=== PATIENT | male | born 1975 | race Caucasian/White ===

== ENCOUNTER 2016-07-21 10:30 | Emergency (ER) | payer OTHER ==
[~2016-07-21] VITALS: Ht 180.3 cm; Wt 125.8 kg
[~2016-07-21 10:30] MED LIST: HYDR-3702 PO; HYDR-3754 PO; LORA1TAB GT; MELA5TAB5 PO; METH500T PO; OMEG1CAP61 PO; SAW160CA2 PO; ZINC OXIDE PO
[2016-07-21 10:34] VITALS: BP 139/103
--- OUTSIDE RECORDS SUMMARY | 2016-07-21 10:39 | XMS REPORT | Continuity of Care Document ---
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 Name Role Phone SHAYYAMADEO MD PCP [phone] Insurance Providers Payer Name Policy Number Subscriber Name Relationship [employer] [id number] Gera Mcwilliams 19 Self / Same As Patient Chief Complaint and Reason for Visit Chief Complaint Pain Reason for Visit Back pain Problems Medical Problems Problem Onset Date Status Backache 03/01/2013 Resolved Insomnia ~10/23/2013 Active Back pain ~08/04/2014 Active Medications Medication Dose Route Sig Days/Qty Instructions Order Date Discontinued Date Status Methocarbamol 1 - 2 Tab ORAL Q 6H PRN 20 Qty Spasms 03/01/13 10/24/13 Discontinued Hydrocodone Bit/Acetaminophen 1 Tab ORAL Q 4H PRN 10 Qty Pain 03/01/13 10/24/13 Discontinued Melatonin 15 Mg ORAL DAILY 10/24/13 Active [place]-3 Fatty Acids/Fish Oil 1 Each ORAL DAILY 10/24/13 Active [Zinc Oxide] ORAL DAILY 10/24/13 Active [place] 160 Mg ORAL DAILY 10/24/13 Active Lorazepam 1 Mg GT BEDTIME 2 Qty 10/24/13 Active Hydrocodone Bit/Acetaminophen 1 Each ORAL EVERY 6 HOURS 5 Qty 08/04/14 Active Social History No social history. Hospital Discharge Instructions No hospital discharge instructions. Plan of Care Discharge Date 08/04/14 7:57pm Disposition 01 HOME OR SELF-CARE Condition at Discharge Stable Instructions/Education Provided Acute Low Back Pain (ED) Forms Provided Patient Seen In ED Prescriptions See Medications Section Referrals AMADEO MUHAMMAD MD Additional Instructions/Education Take home meds. Follow up with Dr. Muhammad. Return to ER as needed. Some of your test results may not be complete prior to your leaving the Emergency Department. The Emergency Department is not authorized to give test results over the phone. Please contact the doctor's office listed in this packet of information for your final results. Follow up with your primary care physician or return to the Emergency Department for worsening or worrisome symptoms. * Emergency Department phone number: [phone], x [phone]* MEDICAL RECORD If you need copies of your X-rays, call [phone]. If you need copies of your medical record, including lab results, a signed authorization for release of records will be required. A telephone call for release of Health Information is not allowed. BILLING Billing can sometimes be confusing and frustrating. To help avoid confusion in the future, please take a moment to acquaint yourself with the billing parties for services. SERVICE BILLING [facility] Emergency Room Services [facility] Physician Services [facility] X[facility] Patients will receive bills for services from the appropriate provider. If you have any questions about your [facility] bill, our staff will be happy to assist you. Please call [phone], and ask for the billing department. THANK YOU for choosing [facility] as your emergency care provider! Functional Status No functional status results. Allergies, Adverse Reactions, Alerts Allergen Type Severity Reaction Status Last Updated Niacin Allergy Intermediate Hives Active 10/24/13 Immunizations No immunization records. Vital Signs Acute Vital Signs Vital Response Date/Time Temperature (Fahrenheit) 99.8 Pulse 94 bpm Respirations 20 Height 5 ft 11 in Weight 264 lb Body Mass Index 36.0 kg/m^2 Results Test Source Date Result Interp. Ref. Range Comments Urine Mucus August 04, 2014 6:21pm 2+ H Urine collection method Clean Catch Urine Squamous Epithelial Cells August 04, 2014 6:21pm 2-5 /LPF Urine collection method Clean Catch Urine Bacteria August 04, 2014 6:21pm None seen /HPF Urine collection method Clean Catch Urine WBC August 04, 2014 6:21pm 0-2 /HPF Urine collection method Clean Catch Urine RBC August 04, 2014 6:21pm 2-5 /HPF Urine collection method Clean Catch Urine Collection Type August 04, 2014 6:21pm Clean catch Urine collection method Clean Catch Volume Urine Centrifuged August 04, 2014 6:21pm 12 ml Urine collection method Clean Catch Albumin/Globulin Ratio August 04, 2014 6:27pm 1.518 N 1.1-1.8 Albumin August 04, 2014 6:27pm 4.1 g/dL N 3.4-5.0 Total Protein August 04, 2014 6:27pm 6.8 g/dL N 6.4-8.5 Alanine Aminotransferase (ALT/SGPT) August 04, 2014 6:27pm 45 U/L N 30- 65 Aspartate Amino Transf (AST/SGOT) August 04, 2014 6:27pm 32 U/L N 15-37 Alkaline Phosphatase August 04, 2014 6:27pm 41 U/L N 38-126 Total Bilirubin August 04, 2014 6:27pm 0.6 mg/dL N 0.1-1.0 Calcium/Ionized Calcium Ratio August 04, 2014 6:27pm 4.2 mg/dL N 3.8-4.6 Calcium Level August 04, 2014 6:27pm 9.3 mg/dL N 8.8-10.8 Calculated Osmolality August 04, 2014 6:27pm 270 mosm/L L 280-300 Glucose Level August 04, 2014 6:27pm 90 mg/dL N 70-110 Estimated GFR (Non- August 04, 2014 6:27pm 103.7 Estimat Glomerular Filtration Rate August 04, 2014 6:27pm 125.5 BUN/Creatinine Ratio August 04, 2014 6:27pm 22 H 10-20 Creatinine August 04, 2014 6:27pm 0.83 mg/dL N 0.8-1.5 Blood Urea Nitrogen August 04, 2014 6:27pm 18 mg/dL N 7-18 Anion Gap August 04, 2014 6:27pm 12.8 MEQ/L N 3-15 Carbon Dioxide Level August 04, 2014 6:27pm 24 mmol/L N 22-29 Chloride Level August 04, 2014 6:27pm 107 mmol/L N 98-108 Potassium Level August 04, 2014 6:27pm 4.4 mmol/L N 3.5-5.1 Sodium Level August 04, 2014 6:27pm 139 mmol/L N 135-150 Urine Leukocyte Esterase August 04, 2014 6:21pm Negative Negative Urine collection method Clean Catch Urine Urobilinogen August 04, 2014 6:21pm 0.2 mg/dL 0.2-1.0 Urine collection method Clean Catch Urine Bilirubin August 04, 2014 6:21pm Negative Negative Urine collection method Clean Catch Urine Nitrite August 04, 2014 6:21pm Negative Negative Urine collection method Clean Catch Urine Ketones August 04, 2014 6:21pm Negative Negative Urine collection method Clean Catch Urine RBC (Auto) August 04, 2014 6:21pm Negative Negative Urine collection method Clean Catch Urine Glucose (UA) August 04, 2014 6:21pm Negative Negative Urine collection method Clean Catch Urine Protein August 04, 2014 6:21pm 1+ H Negative Urine collection method Clean Catch Urine Specific [place] August 04, 2014 6:21pm >=1.030 1.005-1.030 Urine collection method Clean Catch Urine pH August 04, 2014 6:21pm 6.0 5.0 - 8.0 Urine collection method Clean Catch Urine Clarity August 04, 2014 6:21pm Clear Urine collection method Clean Catch Urine Color August 04, 2014 6:21pm Yellow Urine collection method Clean Catch Basophils # (Auto) August 04, 2014 6:27pm 0.0 10^3uL Basophils (%) (Auto) August 04, 2014 6:27pm 1 % N 0-2 Eosinophils # (Auto) August 04, 2014 6:27pm 0.1 10^3uL Eosinophils (%) (Auto) August 04, 2014 6:27pm 2 % N 0-4 Hematocrit August 04, 2014 6:27pm 43.60 % N 39.00-50.00 Hemoglobin August 04, 2014 6:27pm 15.4 g/dL N 13.5-17.0 Lymphocytes # (Auto) August 04, 2014 6:27pm 1.5 X10^3 Lymphocytes (%) (Auto) August 04, 2014 6:27pm 19 % L 20-46 Mean Corpuscular Hemoglobin August 04, 2014 6:27pm 28.7 PG N 26.0-34.0 Mean Corpuscular Hemoglobin Concent August 04, 2014 6:27pm 35.3 g/dL N 31.0-37.0 Mean Corpuscular Volume August 04, 2014 6:27pm 81 FL N 80-100 Mean Platelet Volume August 04, 2014 6:27pm 10.1 FL H 6.0-9.5 Monocytes # (Auto) August 04, 2014 6:27pm 0.7 X10^3 Monocytes (%) (Auto) August 04, 2014 6:27pm 9 % N 3-11 Neutrophils # (Auto) August 04, 2014 6:27pm 5.4 X10^3 Neutrophils (%) (Auto) August 04, 2014 6:27pm 69 % H 51-67 Platelet Count August 04, 2014 6:27pm 214 10^3uL N 150-450 Red Blood Count August 04, 2014 6:27pm 5.36 10^6uL N 4.50-5.50 Red Cell Distribution Width August 04, 2014 6:27pm 15.0 % N 11.8-15.6 White Blood Count August 04, 2014 6:27pm 7.74 10^3uL N 4.0-11.0 Procedures No known history of procedures. Encounters Encounter Location Date/Time Departed Emergency Room [facility] 08/04/14 5:45pm Recent Diagnosis
[2016-07-21] MEDS ORDERED: HYDROmorphone 1 MG/ML (DILAUDID) SYRINGE IM ONE (11:10)
[2016-07-21] MEDS ORDERED: PROMETHAZINE 25 MG/ML (PHENERGAN) 1 ML VIAL IM ONE (11:10)
[2016-07-21] MEDS ORDERED: HYDR-3702 PO (11:12)
[2016-07-21] MEDS ORDERED: CYCL10TA45 PO (11:12)
[2016-07-21] MEDS: KETOROLAC 60 MG/2 ML (TORADOL) VIAL IM ONE ×2 (11:23→11:26)
== END 2016-07-21 11:33 | disposition home or self-care (01) ==
LOC: EDUNIT# 10:30 → ED 10:34
DX: S39.012A Strain of muscle, fascia and tendon of lower back, initial encounter (principal); X58.XXXA Exposure to other specified factors, initial encounter
CPT/HCPCS: 96372; 99282; J1170; J1885; J2550; 99283

== ENCOUNTER → 2016-07-26 | Outpatient (CLI) | payer OTHER ==
[~2016-07-26] MED LIST changes: +CYCL10TA45 PO
--- NOTE | 2016-07-26 17:06 | Diagnostic Imaging Report ---
INDICATION: Acute low back pain. FINDINGS: Good alignment of the vertebral bodies. Body heights and disc spaces are well maintained. Facets show no evidence of pars defect. Mild degenerative facet disease noted at L5-S1. Mild hypertrophic lipping at the endplates noted in the lower 4 disc spaces. Pedicles are intact. SI joints show hypertrophic sclerotic changes along the superior aspect of the right SI joint. Left SI joint appears normal. IMPRESSION: 1. Mild degenerative disc and facet disease. 2. Sclerotic changes noted along the superior aspect of the right SI joint. Overall appearance has changed very little when compared with the 08/04/2014 exam. Dictated by: Dictated on workstation # [id number]
== END ==
LOC: RAD 12:11
PROVIDERS: ATTEND Physician Assistant Surgical
DX: M54.5 Low back pain (principal)
CPT/HCPCS: 72110

== ENCOUNTER 2016-08-13 16:00 | Outpatient (RCR) | payer OTHER ==
--- NOTE | 2016-08-08 12:35 | PT/OT/ST INITIAL EVALUATION ---
Department of Health and Human Services Form Approved [facility] Care Financing Administration OMB No. [id number] PLAN OF CARE/ASSESSMENT FOR OUTPATIENT REHABILITATION (Complete for Initial Claims Only) 1. PATIENT'S NAME Gera Oliver 2. ACC # [id number] 3. HICN NA 4. PROVIDER NO. [id number] 5. TYPE: PT 6. PRIOR HOSPITALIZATION NA 7. PRIMARY DX M54.5 acute low back pain 8. SECONDARY DX Pelvic asymmetry and weakness 9. ONSET DATE 07/25/2016 10. REFERRAL DATE 07/26/2016 11. SOC. DATE 08/06/2016 12. TIME OF EVAL 3:55 p.m. to 4:50 p.m. 12. REFERRING PHYSICIAN JP Dobbins 13. CHARGES/UNITS PT evaluation low complexity 79108 Therapeutic exercise 00089, 2 units 14. G CODES NA 15. PRIOR LEVEL OF FUNCTION; PERTINENT HISTORY (Prior therapy results, reason for referral.) S: Prior to therapy the patient consented to today's evaluation and treatment. The patient is a 41-year-old male referred to physical therapy by JP Dobbins to address functional limitations secondary to acute low back pain, which began on 07/25/2016. Current complaint/Mechanism of injury: The patient stated that he started to have low back pain on 07/25/2016, which just felt tight. On 07/28/2016, the patient went to the ER and got 2 shots. He thinks he received an NSAID and pain medication. 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 The patient does have a history of frequent back pain. The patient states that his pain is mostly a muscles freezing up pain. No pain or numbness or tingling into his lower extremities. 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 Otherwise the patient is not extremely active exercising. The patient had a lot of difficulty sitting in the forklift at the beginning of his shift today. 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 Therapy History: None recently. Pain level: The patient rates the current pain level as 8/10 and describes it as inflammation and burning pain. The left and right low back are equal in pain. Obstacles to delivery of care: None noted. Aggravating factors: Include not having a back support and standing and sitting. Relieving factors: Include sitting in a lawn chair with a heating pad. Diagnostic testing: None. Past medical history: None. Past surgical history: Had a lower hernia surgery in 2008. Current medications: Include antacids, herbal supplements, Tylenol, Flexeril 10 mg, and 5 mg once a day of an NSAID. Leisure activities: Include cooking and cleaning. Activity level: Listed as very active. Personal health rating: Listed as good. Patient's Goal: The patient's goal for physical therapy is to be able to mow his yard with a push mower. Additional goals are to eliminate pain so he can function normally. 16. INITIAL ASSESSMENT/SAFETY PRECAUTIONS/MEDICAL COMPLICATIONS (Level of function at start of care. Be specific, use objective measures, list problems.) O: APPEARANCE, OBSERVATION AND GAIT: The patient presents to physical therapy with the diagnosis of acute low back pain which began on 07/25/2016. The patient states he is unable to lay flat on his back, so full assessment of pelvic asymmetry was not possible. The patient sleeps in a side-lying position where his knees are up towards his chest. The patient gingerly moves from a sitting to a standing position. The patient demonstrates his hamstring stretch that he typically does and is a standing position reaching down to the floor. He does demonstrate a rounded back when doing this. The patient was educated in proper hamstring stretching. PALPATION: The patient was not significantly tender to palpate with his low back and SI region. SPECIAL TESTS: None RANGE OF MOTION/FLEXIBILITY: Lumbar active range of motion flexion 100%, extension 50%, side-bending bilateral 95%, rotation bilateral 95%. STRENGTH: Manual muscle testing of the hips bilateral flexion 4/5, abduction bilateral 4/5, extension bilateral 4/5. Knee flexion bilateral 4/5, knee extension bilateral 5/5. TODAY'S TREATMENT: Included initial PT evaluation followed by therapeutic exercise and prescription of home exercise handout. 17. INITIAL POC: (Specify procedures, modalities, short and ad terminal makeup operator goals) A: The patient presents to physical therapy with the diagnosis of acute low back pain with functional limitations of pelvic asymmetry and weakness. In a standing position the patient's right iliac crest was higher than the left. Further assessment was not possible due to the patient not being able to lay flat. Also in a standing position, upon palpation, the right sacrum appeared to be elevated as compared to the left. The patient would benefit from physical therapy in order to improve core strengthening in order to get pelvis more stability in order to maintain alignment and to enable proper lifting strategies with home activities and to be able to return to work without problems. Once the patient's pain calms down, and he is able to move into and out of a supine position and into and out of a prone position, further assessment of his pelvic alignment will be possible. At this point, the patient leaned his right PSIS region up against a doorjamb gently and provided gentle pressure, which relaxed tight structures that evened out pelvic alignment issues in a standing position. PROGNOSIS: The patient has a good prognosis for increased active range of motion with decreased pain with regular therapy attendance and compliance with prescribed home exercise program. CONTRAINDICATIONS, PRECAUTIONS AND OBSTACLES TO DELIVERY OF CARE: No contraindications, precautions, or obstacles are known at this time. INFORMED CONSENT: The prognosis and goals were discussed with this patient, as well as the expected outcomes and possible risks. The patient agreed to undergo PT evaluation and further treatment. SHORT TERM GOALS: 1. The patient is to have a decrease in pain of the low back to less than or equal to 1/10 in 4 weeks in order to return to mowing and sit to stand without deviation. 2. The patient is to have an increase in core and hip strengthening to 4+/5 bilaterally in 4 weeks in order to maintain proper pelvic alignment and return to work without deviation. 3. The patient is to have hamstring flexibility in a 90/90 position to 140 degrees bilaterally in order to decrease the risk of reinjuring his low back within a 4 week time frame. 4. The patient is to be independent with a progressive home exercise program. P: Plan to treat this patient 2 times a week for 4 weeks to address functional limitations. Treatment to include modalities for pain and inflammation, manual therapy interventions, therapeutic exercise, active and passive range of motion, gait training, balance proprioceptive training, neural reeducation and patient education and home exercise program as tolerable. 18. FREQUENCY 2 times per week 19. DURATION 4 weeks 20. FUNCTIONAL LEVEL (End of claim period) 21. PHYSICIAN SIGNATURE ? ON FILE OR ENTER HERE: 22. DATE: I certify the need for these services furnished under this plan of care and if for partial hospitalization. 23. CERTIFICATION FROM THROUGH FORM [id number]
== END 2016-09-03 13:05 | disposition home or self-care (01) ==
LOC: PT 16:00
PROVIDERS: ATTEND Physician Assistant Surgical
DX: M54.5 Low back pain (principal)